=== PATIENT | male | born 1950 | race Asian ===

== ENCOUNTER 2018-03-24 21:38 | Emergency (ER) | payer OTHER ==
[~2018-03-24] VITALS: Ht 167.6 cm; Wt 95.0 kg
[2018-03-24 21:38] VITALS: BP 84/30
== END 2018-03-25 02:18 ==
LOC: EME 21:38
DX: I46.9 Cardiac arrest, cause unspecified (principal)
CPT/HCPCS: 80047; 80048; 81003; 82150; 83605; 83690; 84484; 85025; 85025 GA; 85610; 85610 GA; 85730; 85730 GA; 86850; 86900; 86901; 87040; 87801; 92950; 93005; 99281; 99285; G0480; J0171; J7050